=== PATIENT | male | born 1945 | race Caucasian/White ===

== ENCOUNTER 2018-07-16 14:23 | Outpatient (CLI) | payer MEDICARE, OTHER ==
[2018-07-16] MEDS ORDERED: Gadobenate Dimeglumine 529 MG/1 ML (20ML VIAL) ONE (16:35)
--- NOTE | 2018-07-16 19:32 | MRI ---
MRI LUMBAR SPINE WITH AND WITHOUT IV CONTRAST: 07/16/18 HISTORY: Lumbar radiculopathy. Patient with history of prior surgery one year ago. Patient now having bilatera l leg pain and weakness. Abnormal gait. COMPARISON: 02/23/16. There has been interval enlargement of exophytic cystic lesion at the inferior pole right kidney mayra uring 2.6 cm and previously measured 1.8 cm. This demonstrates characteristics most compatible with a cyst. Retroperitoneal structures otherwise have a normal MRI appearance. The conus medullaris is normal in appearance and terminates at the level of the L1 vertebral body. Again noted is slight retrolisthesis of L3 on L4 and slight grade I anterolisthesis of L4 on L5. Post surgical changes are again seen involving the lumbar spine with laminectomy defects at the L4 and L5. 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 Scatte red degenerative changes seen in the lumbar spine, overall similar to prior exam. There is narrowing of the intervertebral disc spaces at all levels. T12-L1 level: There is a mild broad based disc osteophyte complex. There is mild effacement of the ve ntral subarachnoid space. Neural foramina are patent. L1-2 level: There are end plate degenerative changes present at this level. There is a broad based di sc osteophyte complex centrally greater on the right resulting in mild right sided neural foraminal n arrowing. There is only minimal encroachment on the left neural foramen. There is generalized narrowi ng of the central spinal canal. L2-3 level: There is broad based osteophyte complex and facet hypertrophic changes. Moderate narrowin g of the central spinal canal. There is mild to moderate bilateral neural foraminal narrowing. The di sc bulge laterally on the right does encroach on the exited right L2 nerve root. L3-4 level: There is a broad based disc osteophyte complex and facet degenerative changes. The findin gs result in moderate narrowing of the central spinal canal. There is moderate to severe bilateral ne ural foraminal narrowing, greater on the left with disc bulge laterally encroaching on the exited fortino ateral L3 nerve roots. L4-5 level: Laminectomy changes are present. There is a broad based disc osteophyte complex with face t hypertrophic changes. There is moderate narrowing of the central spinal canal with severe left side d neural foraminal narrowing and mild right sided neural foraminal narrowing. There is also narrowing of the subarticular zones bilaterally due to the broad based disc osteophyte complex as well. L5-S1 level: There is a mild disc osteophyte complex and facet hypertrophic changes. There is no sign ificant narrowing of the central spinal canal. Right neural foramen is patent, but there is mild to m oderate left sided neural foraminal narrowing similar to the prior exam. There is mild enhancement posterior to the thecal sac at the L4-5 level likely related to scar tissue . No other areas of abnormal enhancement are present. IMPRESSION: 1. Multilevel degenerative changes in the lumbar spine with postoperative changes in the lower l umbar spine. Degree of degenerative changes are overall stable compared to prior exam. POS: MIAH
== END 2018-07-16 14:24 | disposition home or self-care (01) ==
LOC: TBSIIMAG 14:23
PROVIDERS: ATTEND Neurological Surgery
DX: M47.26 Other spondylosis with radiculopathy, lumbar region (principal); Z98.890 Other specified postprocedural states
CPT/HCPCS: 72158; 82565

== ENCOUNTER 2019-10-14 08:51 | Outpatient (CLI) | payer MEDICARE, OTHER ==
--- NOTE | 2019-10-14 11:10 | MRI ---
MRI lumbar spine noncontrast: HISTORY: Spinal stenosis, lumbar. Low back pain. Pain radiates down both lower extremities to both knees. COMPARISON: 06/23/2013, 07/16/2018 FINDINGS: Heterogeneity involving the inferior endplate and superior endplate at L1-L2 and L2-L3. Type I and ty pe II Modic changes are suspected. Lumbar spine vertebral body height is maintained. There is no fracture. No significant STIR hyperintensity to suggest edema from fracture or ligamentous injury. Th ere is edema associated with the type I Modic change at L2-3. Appropriate signal intensity of the visualized paraspinal muscles and solid organs. There is an exoph ytic cyst emanating from the right renal cortex measuring 2.6 cm. Conus medullaris terminates at the mid L1 level. T12-L1:Desiccation with moderate loss of disc space height. Left and right paracentral disc bulges, l igamentum flavum thickening and facet hypertrophy result in mild central canal stenosis. Mild bilateral foraminal narrowing due to disc material. L1-L2:Desiccation with moderate loss of disc space height. Broad-based disc bulge with a right subart icular component. Disc material abuts but does not obscure the traversing right L2 nerve root. No significant stenosis of the thecal sac. Moderate right neural foraminal narrowing due to disc materia l. Left neural foramen is patent L2-L3:Disc desiccation with moderate loss of disc space height. Broad-based disc bulge, ligamentum fl avum thickening and facet hypertrophy noted. There is a small left subarticular disc herniation. Moderate central canal stenosis. Moderate to severe right neural foraminal narrowing. Moderate left f oraminal narrowing. Foraminal narrowing predominantly due to disc material. L3-L4:Disc desiccation without significant loss of disc space height. Broad-based disc bulge with a c entral disc herniation. There is a small focus of disc material in the bilateral subarticular zones. Disc material does contact but does not obscure either traversing L4 nerve root. Moderate cent ral canal stenosis due to disc material and posterior element hypertrophy. Moderate to severe bilateral neural foraminal narrowing. L4-L5:Disc desiccation with mild loss of disc space height. Posterior laminectomy defect. Broad-based disc bulge, ligamentum flavum thickening and facet hypertrophy result in mild to moderate central canal stenosis. Moderate right and moderate to severe left foraminal narrowing. The degree of foramin al stenosis has progressed since the previous examination. L5-S1:Desiccation with mild loss of disc space height. Broad-based disc bulge with a left subarticula r component. There is contact upon the traversing left S1 nerve root without significant mass effect or obscuration. Right subareolar zone is unremarkable. Thecal sac is patent. Mild bilateral ne ural foraminal narrowing. Spondylolisthesis: 4.8 mm of retrolisthesis of L3 upon L4. 5.3 mm anterolisthesis of L4 upon L5. IMPRESSION: 1. Multilevel degenerative changes of the lumbar spine as described above. 2. Type I and type II Modic changes at L1-L2 and L2-L3. 3. Spondylolisthesis as above. Transcribed Date/Time: 10/14/2019 12:25 PM
== END 2019-10-14 08:52 | disposition home or self-care (01) ==
LOC: BICMRI 08:51
PROVIDERS: ATTEND Anesthesiology Pain Medicine
DX: M48.062 Spinal stenosis, lumbar region with neurogenic claudication (principal); M43.16 Spondylolisthesis, lumbar region; M47.816 Spondylosis without myelopathy or radiculopathy, lumbar region
CPT/HCPCS: 72148

== ENCOUNTER 2020-07-21 06:24 | Outpatient (CLI) | payer MEDICARE, OTHER ==
[2020-07-22 20:28] LABS: SARS-CoV-2 MS2 Positive; SARS-CoV-2 N Gene Negative; SARS-CoV-2 S Gene Negative; SARS-CoV-2 by NAA Not Detected (NotDetected); SARS-CoV-2 orf1ab Negative
--- NOTE | 2020-07-25 06:57 | EKG ---
Test Reason : Blood Pressure : / mmHG Vent. Rate : 072 BPM Atrial Rate : 072 BPM P-R Int : 168 ms QRS Dur : 084 ms QT Int : 366 ms P-R-T Axes : 063 042 118 degrees QTc Int : 400 ms Normal sinus rhythm with sinus arrhythmia T wave abnormality, consider lateral ischemia Abnormal ECG No previous ECGs available Confirmed by ARTHUR REYES MD ([id number]) on 07/25/2020 6:57:20 AM Referred By: KASEY Confirmed By:ARTHUR REYES MD
== END 2020-07-21 06:25 | disposition home or self-care (01) ==
LOC: LABBT 06:24
PROVIDERS: ATTEND Neurological Surgery
DX: Z01.818 Encounter for other preprocedural examination (principal); Z01.812 Encounter for preprocedural laboratory examination; Z20.828 Contact with and (suspected) exposure to other viral communicable diseases; M48.061 Spinal stenosis, lumbar region without neurogenic claudication
CPT/HCPCS: 93005; U0003; 87635; 93010

== ENCOUNTER 2020-07-26 07:58 | Day surgery (SDC) | payer MEDICARE, OTHER ==
[2020-07-25 14:22] VITALS: BMI 40.8
--- NOTE | 2020-07-25 22:38 | HP ---
HISTORY OF PRESENT ILLNESS: Mr. Machuca is known to us for prior lumbar decompression, returns now with recurrent symptoms of neurogenic claudication. He has been receiving epidural steroid injections by Dr. Porter, which resulted in some support of 7 days of at least is having a significant deal of trouble when walking as result of his symptoms. New MRI from [facility] reveals severe central canal stenosis at L2-3, which would certainly correspond well to this pain. PAST MEDICAL HISTORY: Significant for osteoarthritis and seasonal allergies. PAST SURGICAL HISTORY: Internal fixation of the lower extremity fracture and lumbar laminectomy. CURRENT MEDICATIONS: 1. Brovana. 2. Sertraline. 3. Lisinopril. 4. Hydrochlorothiazide. ALLERGIES: NO KNOWN DRUG ALLERGIES. PHYSICAL EXAMINATION: Exam is deferred for telehealth visit. ASSESSMENT: Lumbar spinal stenosis with neurogenic claudication. PLAN: Dr. Moses met with the patient, reviewed imaging, and advocated for an L2-3 decompression. He explained to the patient the risks, benefits, and alternatives to the procedure. The patient expressed understanding and elected to move forward with surgery as discussed. I do believe the patient is mentally competent and capable of making medical decisions for himself. We will move forward with surgery as planned. Job ID: [id number]
[2020-07-26] MEDS ORDERED: Bupivacaine PF 0.5% 30 ML VIAL ONE (08:03)
[2020-07-26] MEDS ORDERED: EPINEPHrine 1 MG/ML AMP ONE (08:03)
[2020-07-26] MEDS ORDERED: Albuterol Sulfate 2.5 mg/3 ml Neb ONE (08:13)
[2020-07-26] MEDS ORDERED: Fentanyl 100 MCG/2 ML VIAL ONE ×2 (08:52→12:19)
[2020-07-26] MEDS ORDERED: Thrombin 5000 UNITS/5 ML VIAL ONE (10:22)
[2020-07-26] MEDS ORDERED: SUGAMMADEX SODIUM 200 MG/2 ML VIAL ONE ×2 (10:23→10:49)
--- NOTE | 2020-07-26 10:38 | OP ---
DATE OF PROCEDURE: 07/26/2020 SMELTER CHARGER: Kirk Coreas PA-C INDICATION: Pain. DIAGNOSIS: Lumbar stenosis. PROCEDURES PERFORMED: L2-L3 lumbar decompression. ANESTHESIA: General. DESCRIPTION OF PROCEDURE: The patient was brought into the operating room and placed under general anesthesia. He was flipped from the supine to prone position on the operating room table. A linear incision was planned spanning L2 to L3. After prepping and draping and after an appropriate preoperative pause, the incision was created. The soft tissues were swept away from midline. A self-retaining retractor was placed in the wound for optimal exposure. An Adson rongeur was used to remove the spinous process along the inferior aspect of L2 and the superior aspect of L3. High-speed cutting drill bit as well as 2, 3, and 4 mm Kerrisons were used to complete the laminectomy. The laminectomy was extended laterally to encompass the medial aspect of the facet joints. After completing the decompression, the wound was irrigated. Hemostasis was maintained throughout. The wound was then closed in anatomic layers, and a pressure dressing was applied. There were no known procedural complications. Job ID: [id number]
[2020-07-26] MEDS ORDERED: Tamsulosin HCl 0.4 MG CAP ONE (11:16)
[2020-07-26] MEDS ORDERED: PHENYLEPHRINE-NS 100 MCG/ML 10 ML SYRINGE ONE (11:22)
[2020-07-26] MEDS ORDERED: Lidocaine 1% PF 5 ML VIAL ONE (11:22)
[2020-07-26] MEDS ORDERED: ePHEDrine 50 MG/ML VIAL ONE (11:22)
[2020-07-26] MEDS ORDERED: Albuterol Sulfate HFA (OR ONLY) ONE (11:22)
[2020-07-26] MEDS ORDERED: PROPOFOL 200 MG/20 ML VIAL ONE (11:22)
[2020-07-26] MEDS ORDERED: Rocuronium Bromide 10 MG/ML (10ML VIAL) ONE (11:22)
[2020-07-26] MEDS ORDERED: Ondansetron PF 4 MG/2 ML Vial ONE (11:22)
[2020-07-26] MEDS ORDERED: Ketorolac Tromethamine 30 MG/ML VIAL ONE (11:22)
[2020-07-26] MEDS ORDERED: Acetaminophen/Codeine 30-300mg Tablet ONE (13:43)
== END 2020-07-26 15:50 | disposition home or self-care (01) ==
LOC: SDC 07:58
PROVIDERS: ATTEND Neurological Surgery
PROC: 01NB0ZZ Release Lumbar Nerve, Open Approach (ICD-10-PCS; principal; 2020-07-26)
DX: M48.062 Spinal stenosis, lumbar region with neurogenic claudication (principal); M19.90 Unspecified osteoarthritis, unspecified site; J30.2 Other seasonal allergic rhinitis; Z79.899 Other long term (current) drug therapy
CPT/HCPCS: 76000; J0171; J0690; J1885; J2405; J2704; J3010; J3490; J7611; J7620; S0020

== ENCOUNTER 2020-10-17 08:02 | Outpatient (CLI) | payer MEDICARE, OTHER ==
--- NOTE | 2020-10-17 08:18 | RAD ---
RADIOGRAPH CHEST 2 VIEWS: DATE: 10/17/2020 HISTORY: 74-year-old male with dyspnea FINDINGS: There is no airspace density, pulmonary edema, pleural effusion, pneumothorax, or cardiomegaly. IMPRESSION: No acute cardiopulmonary findings.
== END 2020-10-17 08:03 | disposition home or self-care (01) ==
LOC: BICRAD 08:02
PROVIDERS: ATTEND Internal Medicine Critical Care Medicine
DX: R06.00 Dyspnea, unspecified (principal)
CPT/HCPCS: 71046

== ENCOUNTER 2021-05-29 12:02 | Outpatient (CLI) | payer MEDICARE, OTHER | END 2021-05-29 12:03 | disposition home or self-care (01) | LOC: RAD 12:02 | PROVIDERS: ATTEND Specialist | DX: M96.1 Postlaminectomy syndrome, not elsewhere classified (principal); M47.26 Other spondylosis with radiculopathy, lumbar region | CPT/HCPCS: 72120 ==

== ENCOUNTER 2022-01-30 13:26 | Outpatient (CLI) | payer MEDICARE | END 2022-01-30 13:27 | disposition home or self-care (01) | LOC: TBSIIMAG 13:26 | PROVIDERS: ATTEND Specialist | DX: M96.1 Postlaminectomy syndrome, not elsewhere classified (principal); M47.26 Other spondylosis with radiculopathy, lumbar region; M51.16 Intervertebral disc disorders with radiculopathy, lumbar region; M43.16 Spondylolisthesis, lumbar region; M48.061 Spinal stenosis, lumbar region without neurogenic claudication; M48.07 Spinal stenosis, lumbosacral region; Z98.890 Other specified postprocedural states | CPT/HCPCS: 72100; 72158 ==

== ENCOUNTER 2022-05-21 13:25 | Outpatient (CLI) | payer MEDICARE ==
[2022-05-21 15:11] LABS: Hemoglobin 12.5 g/dL (13.5-17.5); Mean Corpuscular HGB CONC 32.1 g/dL (32.0-36.0); Mean Corpuscular Hemoglobin 28.3 pg (27.0-33.0); Mean Corpuscular Volume 88.2 fl (81.2-95.1); Mean Platelet Volume 11.7 fl (7.4-10.4); Platelet Count 302 10x3/uL (150-450); RBC Distribution Width 14.3 % (11.5-14.5); Red Blood Cell (RBC) Count 4.42 10x6/uL (4.32-5.72)
[2022-05-21 15:25] LABS: Anion Gap 15 mmol/L (10-20); BUN (Urea Nitrogen) 16 mg/dL (8.4-25.7); Calc. Creatinine Clearance 0 mL/min (70-130); Carbon Dioxide 24 mmol/L (23-31); Chloride 105 mmol/L (98-107); Estimated GFR 57; Glucose 111 mg/dL (83-110); Potassium 4.1 mmol/L (3.5-5.1); Sodium 140 mmol/L (136-145)
== END 2022-05-21 13:26 | disposition home or self-care (01) ==
LOC: LABBT 13:25
PROVIDERS: ATTEND Neurological Surgery
DX: U07.1 COVID-19 (principal); Z01.818 Encounter for other preprocedural examination; M54.16 Radiculopathy, lumbar region
CPT/HCPCS: 80048; 85027; 87811; 93005; 93010

== ENCOUNTER 2022-05-22 14:00 | Outpatient (CLI) | payer MEDICARE | END 2022-05-22 14:01 | disposition home or self-care (01) | LOC: LABBT 14:00 | PROVIDERS: ATTEND Nurse Practitioner Family | DX: Z20.822 Contact with and (suspected) exposure to COVID-19 (principal) | CPT/HCPCS: U0003; U0005 ==

== ENCOUNTER 2022-05-24 05:40 | Day surgery (SDC) | payer MEDICARE ==
[2022-05-23 09:23] VITALS: BMI 40.8
[2022-05-24] MEDS ORDERED: Thrombin 5000 UNITS/5 ML VIAL ONE (06:19)
[2022-05-24] MEDS ORDERED: Bupivacaine HCl 0.5%/Epinephrine 1:200,000/PF 30 ml Vial ONE (06:19)
[2022-05-24] MEDS ORDERED: fentaNYL Citrate/PF 100 MCG/2 ML SYRINGE ONE (06:21)
[2022-05-24] MEDS ORDERED: Sodium Chloride 0.9% 100 ML ONE ×2 (06:57→11:21)
[2022-05-24] MEDS ORDERED: CEFAZOLIN 2 GM VIAL ONE ×2 (06:57→11:21)
[2022-05-24] MEDS ORDERED: Rocuronium Bromide 10 MG/ML (10ML VIAL) ONE (07:11)
[2022-05-24] MEDS ORDERED: ePHEDrine 50 MG/ML VIAL ONE (07:11)
[2022-05-24] MEDS ORDERED: Lidocaine 1% MPF 2 ML VIAL ONE (07:11)
[2022-05-24] MEDS ORDERED: Ondansetron PF 4 MG/2 ML Vial ONE (07:11)
[2022-05-24] MEDS ORDERED: Dexamethasone 20 MG/5 ML VIAL ONE (07:11)
[2022-05-24] MEDS ORDERED: PROPOFOL 200 MG/20 ML VIAL ONE (07:11)
[2022-05-24] MEDS ORDERED: Phenylephrine 10 MG/ML VIAL ONE (07:11)
[2022-05-24] MEDS ORDERED: SUGAMMADEX SODIUM 200 MG/2 ML VIAL ONE (08:24)
[2022-05-24] MEDS ORDERED: Fentanyl 100 MCG/2 ML VIAL ONE (08:55)
[2022-05-24] MEDS ORDERED: Tamsulosin HCl 0.4 MG CAP ONE (09:29)
== END 2022-05-24 11:57 | disposition home or self-care (01) ==
LOC: SDC 05:40
PROVIDERS: ATTEND Neurological Surgery
PROC: 01NB0ZZ Release Lumbar Nerve, Open Approach (ICD-10-PCS; principal; 2022-05-24)
DX: M48.062 Spinal stenosis, lumbar region with neurogenic claudication (principal); M54.16 Radiculopathy, lumbar region; J45.909 Unspecified asthma, uncomplicated; Z79.899 Other long term (current) drug therapy
CPT/HCPCS: 76000; J0690; J3010; J3490; J7620

== ENCOUNTER 2022-10-01 08:37 | Inpatient (IN) | payer MEDICARE ==
[2022-10-01] MEDS ORDERED: Meclizine HCl 25 MG TAB ONE (09:13)
[2022-10-01 09:45] LABS: #Basophils 0.1 thou/uL (0.0-0.2); #Eosinphils 0.1 thou/uL (0.0-0.7); #Lymphocytes 3.3 thou/uL (1.20-3.40); #Monocytes 0.9 thou/uL (0.11-0.59); #Neutrophils 8.2 thou/uL (1.40-6.50); %Basophils 0.7 % (0.0-1.0); %Eosinophils 0.7 % (0.0-10.0); %Lymphocytes 26.5 % (21.0-51.0); %Monocytes 7.1 % (0.0-10.0); %Neutrophils 65.1 % (42.0-75.0); Hemoglobin 12.7 g/dL (14.0-18.0); Mean Corpuscular HGB CONC 32.4 g/dL (32.0-36.0); Mean Corpuscular Hemoglobin 28.4 pg (27.0-31.0); Mean Corpuscular Volume 87.5 fl (78.0-98.0); Mean Platelet Volume 9.3 fL (7.4-10.4); Platelet Count 309 10x3/uL (130-400); RBC Distribution Width 15.5 % (11.5-14.5); Red Blood Cell (RBC) Count 4.49 mill/uL (4.70-6.10); White Blood Cell (WBC) Count 12.6 10x3/uL (4.8-10.8)
[2022-10-01 10:07] LABS: ALT (SGPT) 16 U/L (8-55); AST (SGOT) 11 U/L (5-34); Albumin 3.7 g/dL (3.4-4.8); Alkaline Phosphatase 69 U/L (40-110); Anion Gap 12 mmol/L (10-20); BUN (Urea Nitrogen) 21 mg/dL (8.4-25.7); Bilirubin, Total 0.2 mg/dL (0.2-1.2); CK (CPK) 57 U/L (30-200); Calc. Creatinine Clearance 0 mL/min (70-130); Calcium 8.9 mg/dL (7.8-10.44); Carbon Dioxide 26 mmol/L (23-31); Chloride 103 mmol/L (98-107); Estimated GFR 66; Globulin 3.4 g/dL (2.4-3.5); Glucose 99 mg/dL (83-110); Lipase 40 U/L (8-78); Potassium 3.8 mmol/L (3.5-5.1); Protein, Total 7.1 g/dL (5.8-8.1); Sodium 137 mmol/L (136-145)
[2022-10-01] MEDS ORDERED: Aspirin Chewable 81 MG TAB ONE (10:09)
[2022-10-01 10:25] LABS: Bilirubin Negative (Negative); Blood, Urine Negative (Negative); Clarity Clear (Clear); Glucose, Urine (Dipstick) Normal (Negative); Ketone, Urine Negative (Negative); Leukocyte Negative Leu/uL (Negative); Nitrite Negative (Negative); Protein, Urine (Dipstick) Negative (Neg-Trace); Specific Gravity, Urine 1.019 (1.002-1.036); Urobilinogen Normal mg/dL (Less than 2)
[2022-10-01 10:26] LABS: CKMB 1.2 ng/mL (0-6.6)
[2022-10-01] MEDS ORDERED: Acetaminophen 325 MG TAB PO PRN (11:51)
[2022-10-01] MEDS ORDERED: Ondansetron ODT 4 MG TAB PO PRN (11:51)
[2022-10-01] MEDS ORDERED: Ondansetron PF 4 MG/2 ML Vial IVP PRN (11:51)
[2022-10-01] MEDS ORDERED: Senokot S 8.6-50 MG TAB PO PRN (11:51)
[2022-10-01 13:13] LABS: Troponin I 0.107 ng/mL (< 0.028)
[2022-10-01] MEDS ORDERED: Benzonatate 100 MG CAP PO PRN (13:47)
[2022-10-01] MEDS ORDERED: Ipratropium/Albuterol 3 ML NEB NEB PRN (13:47)
[2022-10-01 16:22] LABS: Troponin I 0.084 ng/mL (< 0.028)
[2022-10-01 18:11] LABS: SARS-CoV-2 NAA Rapid Test Not Detected (NotDetected)
[2022-10-01] MEDS: Atorvastatin Calcium 40 MG TAB PO SCH (22:56)
[2022-10-02 01:47] LABS: #Basophils 0.1 thou/uL (0.0-0.2); #Eosinphils 0.2 thou/uL (0.0-0.7); #Lymphocytes 3.6 thou/uL (1.20-3.40); #Monocytes 0.9 thou/uL (0.11-0.59); #Neutrophils 6.8 thou/uL (1.40-6.50); %Basophils 0.7 % (0.0-1.0); %Eosinophils 1.9 % (0.0-10.0); %Lymphocytes 30.7 % (21.0-51.0); %Monocytes 8.1 % (0.0-10.0); %Neutrophils 58.6 % (42.0-75.0); Hemoglobin 12.5 g/dL (14.0-18.0); Mean Corpuscular HGB CONC 31.9 g/dL (32.0-36.0); Mean Corpuscular Hemoglobin 27.7 pg (27.0-31.0); Mean Corpuscular Volume 87.1 fl (78.0-98.0); Mean Platelet Volume 9.6 fL (7.4-10.4); Platelet Count 280 10x3/uL (130-400); RBC Distribution Width 15.6 % (11.5-14.5); Red Blood Cell (RBC) Count 4.51 mill/uL (4.70-6.10); White Blood Cell (WBC) Count 11.6 10x3/uL (4.8-10.8)
[2022-10-02 02:23] LABS: Hemoglobin A1c 6.4 % (4.0-6.0)
[2022-10-02 02:25] LABS: Anion Gap 13 mmol/L (10-20); BUN (Urea Nitrogen) 24 mg/dL (8.4-25.7); Calc. Creatinine Clearance 98 mL/min (70-130); Calcium 9.1 mg/dL (7.8-10.44); Carbon Dioxide 25 mmol/L (23-31); Cardiac Risk 3.2 (Less than 4.5); Chloride 103 mmol/L (98-107); Cholesterol 175 mg/dl (< 200 Desired); Estimated GFR 62; Glucose 89 mg/dL (83-110); HDL Cholesterol 54 mg/dL (>60 Neg Risk); LDL Cholesterol, Calculated 99 mg/dL; Potassium 4.6 mmol/L (3.5-5.1); Sodium 136 mmol/L (136-145); Triglycerides 110 mg/dL (Less than 150)
[2022-10-02] MEDS ORDERED: Non-Formulary Item 1 EACH (Sertraline Hcl [Zoloft] 50 MG Tablet) PO SCH (09:00)
[2022-10-02] MEDS ORDERED: Aspirin Chewable 81 MG TAB ONE (09:08)
[2022-10-02] MEDS: Lisinopril/Hydrochlorothiazide 20 mg/12.5 mg Tablet PO SCH (09:59)
[2022-10-02] MEDS: Aspirin 81 mg Enteric Coated Tablet PO SCH (09:59)
[2022-10-02] MEDS: Sertraline 25 MG TAB PO SCH (10:00)
[2022-10-02 16:34] VITALS: BMI 38.1
[2022-10-02] MEDS: Atorvastatin Calcium 40 MG TAB PO SCH (22:02)
[2022-10-03 06:16] LABS: #Basophils 0.1 thou/uL (0.0-0.2); #Eosinphils 0.3 thou/uL (0.0-0.7); #Lymphocytes 2.2 thou/uL (1.20-3.40); #Monocytes 0.7 thou/uL (0.11-0.59); %Basophils 0.6 % (0.0-1.0); %Eosinophils 3.1 % (0.0-10.0); %Lymphocytes 23.7 % (21.0-51.0); %Monocytes 7.2 % (0.0-10.0); %Neutrophils 65.4 % (42.0-75.0); Hemoglobin 12.6 g/dL (14.0-18.0); Mean Corpuscular HGB CONC 31.8 g/dL (32.0-36.0); Mean Corpuscular Hemoglobin 27.6 pg (27.0-31.0); Mean Corpuscular Volume 86.6 fl (78.0-98.0); Mean Platelet Volume 10.2 fL (7.4-10.4); Platelet Count 286 10x3/uL (130-400); Red Blood Cell (RBC) Count 4.59 mill/uL (4.70-6.10); White Blood Cell (WBC) Count 9.2 10x3/uL (4.8-10.8)
[2022-10-03 06:35] LABS: Anion Gap 12 mmol/L (10-20); BUN (Urea Nitrogen) 25 mg/dL (8.4-25.7); Calc. Creatinine Clearance 103 mL/min (70-130); Carbon Dioxide 27 mmol/L (23-31); Chloride 101 mmol/L (98-107); Estimated GFR 71; Glucose 92 mg/dL (83-110); Potassium 3.9 mmol/L (3.5-5.1); Sodium 136 mmol/L (136-145)
[2022-10-03] MEDS ORDERED: Regadenoson 0.4 MG/5 ML SYRINGE ONE (08:42)
[2022-10-03 12:33] VITALS: TEMP 97.4
[2022-10-03] MEDS: Lisinopril/Hydrochlorothiazide 20 mg/12.5 mg Tablet PO SCH (12:38)
[2022-10-03] MEDS: Aspirin 81 mg Enteric Coated Tablet PO SCH (12:39)
[2022-10-03] MEDS: Sertraline 25 MG TAB PO SCH (12:41)
[2022-10-03 14:23] VITALS: BP 121/53
== END 2022-10-03 16:30 | disposition home or self-care (01) | DRG 69 ==
LOC: ERS 08:37 → ERHOLD 11:04 → NEURO 10-02 16:02 → OBSVTOIN 10-02 17:04
PROVIDERS: ADMIT Internal Medicine; ATTEND Internal Medicine
DX: G45.9 Transient cerebral ischemic attack, unspecified (principal); I10 Essential (primary) hypertension; F32.A Depression, unspecified; D64.9 Anemia, unspecified; E78.5 Hyperlipidemia, unspecified; Z86.73 Personal history of transient ischemic attack (TIA), and cerebral infarction without residual deficits; Z20.822 Contact with and (suspected) exposure to COVID-19; Z79.899 Other long term (current) drug therapy; Z79.51 Long term (current) use of inhaled steroids; Z98.890 Other specified postprocedural states; Z82.49 Family history of ischemic heart disease and other diseases of the circulatory system; Z82.3 Family history of stroke; R79.89 Other specified abnormal findings of blood chemistry
CPT/HCPCS: 36415; 70450; 70551; 71045; 78452; 80048; 80053; 80061; 81003; 82550; 82553; 83036; 83690; 84484; 85025; 93005; 93017; 93880; 94640; A9500; G0378; J2785; J7620

== ENCOUNTER 2022-11-18 15:22 | Inpatient (IN) | payer MEDICARE ==
[2022-11-18] MEDS ORDERED: Senokot S 8.6-50 MG TAB PO PRN (18:58)
[2022-11-18] MEDS ORDERED: Ondansetron PF 4 MG/2 ML Vial IVP PRN (18:58)
[2022-11-18] MEDS ORDERED: Guaifenesin DM 100-10/5 ML UDCUP PO PRN (18:58)
[2022-11-18] MEDS ORDERED: Acetaminophen 325 MG TAB PO PRN (18:58)
[2022-11-18] MEDS ORDERED: Ipratropium/Albuterol 3 ML NEB NEB PRN (20:42)
[2022-11-18] MEDS ORDERED: Sodium Chloride 0.9% 1,000 ML IV SCH (20:45)
[2022-11-18] MEDS ORDERED: Potassium Chloride 20 MEQ TAB PO SCH (21:30)
[2022-11-18] MEDS: Atorvastatin Calcium 40 MG TAB PO SCH (22:10)
[2022-11-18 23:57] LABS: Bacteria/HPF None Seen HPF (None Seen); Bilirubin Negative (Negative); Blood, Urine Negative (Negative); Clarity Clear (Clear); Glucose, Urine (Dipstick) Normal (Negative); Ketone, Urine Negative (Negative); Leukocyte Negative Leu/uL (Negative); Nitrite Negative (Negative); Protein, Urine (Dipstick) Negative (Neg-Trace); RBC/HPF 0-3 HPF (0-3); Squamous Epithelial None Seen HPF (0-3); Urobilinogen Normal mg/dL (Less than 2); WBC/HPF 0-3 HPF (0-3)
[2022-11-19 00:05] VITALS: BMI 38.4
[2022-11-19 06:21] LABS: #Eosinphils 0.4 thou/uL (0.0-0.7); #Monocytes 0.6 thou/uL (0.11-0.59); #Neutrophils 7.2 thou/uL (1.40-6.50); %Basophils 0.5 % (0.0-1.0); %Eosinophils 4.1 % (0.0-10.0); %Lymphocytes 19.6 % (21.0-51.0); %Neutrophils 69.9 % (42.0-75.0); Hemoglobin 8.3 g/dL (14.0-18.0); Mean Corpuscular HGB CONC 31.4 g/dL (32.0-36.0); Mean Corpuscular Hemoglobin 27.4 pg (27.0-31.0); Mean Corpuscular Volume 87.4 fl (78.0-98.0); Mean Platelet Volume 8.2 fL (7.4-10.4); Platelet Count 373 10x3/uL (130-400); RBC Distribution Width 14.9 % (11.5-14.5); Red Blood Cell (RBC) Count 3.04 mill/uL (4.70-6.10); White Blood Cell (WBC) Count 10.3 10x3/uL (4.8-10.8)
[2022-11-19 06:42] LABS: Anion Gap 12 mmol/L (10-20); BUN (Urea Nitrogen) 47 mg/dL (8.4-25.7); Calc. Creatinine Clearance 55 mL/min (70-130); Calcium 8.5 mg/dL (7.8-10.44); Carbon Dioxide 25 mmol/L (23-31); Chloride 104 mmol/L (98-107); Estimated GFR 35; Glucose 96 mg/dL (83-110); Magnesium 2.2 mg/dL (1.6-2.6); Potassium 4.8 mmol/L (3.5-5.1); Sodium 136 mmol/L (136-145)
[2022-11-19] MEDS ORDERED: Potassium Chloride 20 MEQ TAB PO SCH (08:00)
[2022-11-19] MEDS: Aspirin 81 mg Enteric Coated Tablet PO SCH (08:25)
[2022-11-19] MEDS: Sodium Chloride 0.9% 1,000 ML IV SCH (16:31)
[2022-11-19] MEDS ORDERED: Iron Sucrose Complex 200 MG in Sodium Chloride 0.9% 100 ML IVPB SCH (16:45)
[2022-11-19] MEDS ORDERED: Iron, Sodium Ferric Gluconate 250 MG in Sodium Chloride 0.9% 250 ML 250 ML IVPB SCH (16:45)
[2022-11-19] MEDS ORDERED: Ipratropium/Albuterol 3 ML NEB NEB PRN (19:50)
[2022-11-19] MEDS: Multivit, Therapeutic 1 TAB PO SCH (20:36)
[2022-11-19] MEDS: Atorvastatin Calcium 40 MG TAB PO SCH (20:36)
[2022-11-19] MEDS: Cyanocobalamin (Vitamin B-12) 1,000 MCG TAB PO SCH (20:36)
[2022-11-19] MEDS: Folic Acid 1 MG TAB PO SCH (20:36)
[2022-11-20] MEDS ORDERED: Ipratropium/Albuterol 3 ML NEB NEB SCH (01:00)
[2022-11-20] MEDS: Sodium Chloride 0.9% 1,000 ML IV SCH ×2 (03:46→11:10)
[2022-11-20 06:23] LABS: #Basophils 0.1 thou/uL (0.0-0.2); #Eosinphils 0.5 thou/uL (0.0-0.7); #Lymphocytes 1.8 thou/uL (1.20-3.40); #Monocytes 0.7 thou/uL (0.11-0.59); %Eosinophils 4.7 % (0.0-10.0); %Lymphocytes 16.6 % (21.0-51.0); %Monocytes 6.4 % (0.0-10.0); %Neutrophils 71.4 % (42.0-75.0); Hemoglobin 8.8 g/dL (14.0-18.0); Mean Corpuscular HGB CONC 31.9 g/dL (32.0-36.0); Mean Corpuscular Hemoglobin 27.9 pg (27.0-31.0); Mean Corpuscular Volume 87.6 fl (78.0-98.0); Mean Platelet Volume 8.5 fL (7.4-10.4); Platelet Count 339 10x3/uL (130-400); Red Blood Cell (RBC) Count 3.15 mill/uL (4.70-6.10); White Blood Cell (WBC) Count 11.1 10x3/uL (4.8-10.8)
[2022-11-20 06:24] LABS: Reticulocyte Count 2.5 % (0.5-1.5)
[2022-11-20 06:45] LABS: Anion Gap 11 mmol/L (10-20); BUN (Urea Nitrogen) 31 mg/dL (8.4-25.7); Calc. Creatinine Clearance 87 mL/min (70-130); Calcium 8.3 mg/dL (7.8-10.44); Carbon Dioxide 21 mmol/L (23-31); Chloride 107 mmol/L (98-107); Estimated GFR 62; Glucose 97 mg/dL (83-110); Magnesium 2.1 mg/dL (1.6-2.6); Potassium 4.4 mmol/L (3.5-5.1); Sodium 135 mmol/L (136-145)
[2022-11-20] MEDS ORDERED: Sodium Chloride 0.9% 1,000 ML IV SCH (08:03)
[2022-11-20] MEDS: Aspirin 81 mg Enteric Coated Tablet PO SCH (10:03)
[2022-11-20] MEDS: Sertraline 100 MG TAB PO SCH (10:05)
[2022-11-20] MEDS ORDERED: GoLYTELY 4,000 ml Bottle PO SCH (17:00)
[2022-11-20] MEDS ORDERED: Iron, Sodium Ferric Gluconate 250 MG in Sodium Chloride 0.9% 250 ML 250 ML IVPB SCH (17:00)
[2022-11-20] MEDS: Cholecalciferol 1,000 UNITS (25 MCG) TAB PO SCH (22:05)
[2022-11-20] MEDS: Multivit, Therapeutic 1 TAB PO SCH (22:05)
[2022-11-20] MEDS: Atorvastatin Calcium 40 MG TAB PO SCH (22:05)
[2022-11-20] MEDS: Folic Acid 1 MG TAB PO SCH (22:05)
[2022-11-20] MEDS: Cyanocobalamin (Vitamin B-12) 1,000 MCG TAB PO SCH (22:05)
[2022-11-21 06:35] LABS: #Eosinphils 0.2 thou/uL (0.0-0.7); #Lymphocytes 1.6 thou/uL (1.20-3.40); #Monocytes 0.7 thou/uL (0.11-0.59); %Basophils 0.5 % (0.0-1.0); %Eosinophils 1.7 % (0.0-10.0); %Monocytes 6.6 % (0.0-10.0); %Neutrophils 76.2 % (42.0-75.0); Hemoglobin 7.7 g/dL (14.0-18.0); Mean Corpuscular Hemoglobin 27.7 pg (27.0-31.0); Mean Corpuscular Volume 86.6 fl (78.0-98.0); Mean Platelet Volume 8.2 fL (7.4-10.4); Platelet Count 274 10x3/uL (130-400); RBC Distribution Width 14.8 % (11.5-14.5); Red Blood Cell (RBC) Count 2.77 mill/uL (4.70-6.10); White Blood Cell (WBC) Count 10.6 10x3/uL (4.8-10.8)
[2022-11-21 06:54] LABS: Anion Gap 12 mmol/L (10-20); BUN (Urea Nitrogen) 20 mg/dL (8.4-25.7); Calc. Creatinine Clearance 99 mL/min (70-130); Calcium 8.7 mg/dL (7.8-10.44); Carbon Dioxide 22 mmol/L (23-31); Chloride 105 mmol/L (98-107); Estimated GFR 72; Glucose 106 mg/dL (83-110); Potassium 4.3 mmol/L (3.5-5.1); Sodium 135 mmol/L (136-145)
[2022-11-21] MEDS ORDERED: Lidocaine 1% PF 5 ML VIAL ONE (10:00)
[2022-11-21] MEDS ORDERED: PROPOFOL 200 MG/20 ML VIAL ONE (10:00)
[2022-11-21] MEDS ORDERED: Glycopyrrolate 0.2 MG/ML 5 ML SYRINGE ONE (10:00)
[2022-11-21] MEDS ORDERED: Morphine Sulfate 2 MG/ML SYRINGE SLOW IVP PRN (10:53)
[2022-11-21] MEDS ORDERED: Promethazine HCl 25 MG/ML VIAL IM PRN (10:53)
[2022-11-21] MEDS ORDERED: Ondansetron HCl/PF 4 MG/2 ML Vial IVP PRN (10:53)
[2022-11-21] MEDS: Sertraline 100 MG TAB PO SCH (11:46)
[2022-11-21] MEDS: Aspirin 81 mg Enteric Coated Tablet PO SCH (11:46)
[2022-11-21] MEDS ORDERED: Furosemide 20 MG/2 ML VIAL SLOW IVP SCH (18:45)
[2022-11-21] MEDS ORDERED: Iron Sucrose Complex 200 MG in Sodium Chloride 0.9% 100 ML IVPB SCH (18:45)
[2022-11-21] MEDS ORDERED: Furosemide 40 MG TAB PO SCH (18:45)
[2022-11-21] MEDS: Atorvastatin Calcium 40 MG TAB PO SCH (20:33)
[2022-11-21] MEDS: Cyanocobalamin (Vitamin B-12) 1,000 MCG TAB PO SCH (20:33)
[2022-11-21] MEDS: Folic Acid 1 MG TAB PO SCH ×2 (20:33→20:41)
[2022-11-21] MEDS: Cholecalciferol 1,000 UNITS (25 MCG) TAB PO SCH (20:33)
[2022-11-21] MEDS: Multivit, Therapeutic 1 TAB PO SCH (20:33)
[2022-11-22 05:46] LABS: Hemoglobin 7.5 g/dL (14.0-18.0)
[2022-11-22 06:12] LABS: Anion Gap 11 mmol/L (10-20); BUN (Urea Nitrogen) 17 mg/dL (8.4-25.7); Calc. Creatinine Clearance 90 mL/min (70-130); Calcium 8.8 mg/dL (7.8-10.44); Carbon Dioxide 26 mmol/L (23-31); Chloride 105 mmol/L (98-107); Estimated GFR 64; Glucose 118 mg/dL (83-110); Potassium 3.9 mmol/L (3.5-5.1); Sodium 138 mmol/L (136-145)
[2022-11-22] MEDS ORDERED: Iron Polysaccharides Complex 150 MG CAP PO SCH (08:00)
[2022-11-22] MEDS ORDERED: Potassium Chloride 20 MEQ TAB PO SCH (08:15)
[2022-11-22] MEDS ORDERED: Furosemide 40 MG TAB PO SCH ×2 (08:15→14:00)
[2022-11-22] MEDS: Aspirin 81 mg Enteric Coated Tablet PO SCH (09:51)
[2022-11-22] MEDS: Sertraline 100 MG TAB PO SCH (09:58)
[2022-11-22 15:29] VITALS: BP 116/70; TEMP 97.5
== END 2022-11-22 16:45 | disposition home or self-care (01) | DRG 812 ==
LOC: NEURO 18:55 → OBSVTOIN 11-20 10:43
PROVIDERS: ADMIT Hospitalist; ATTEND Internal Medicine
PROC: 0DBK8ZZ Excision of Ascending Colon, Via Natural or Artificial Opening Endoscopic (ICD-10-PCS; principal; 2022-11-21)
PROC: 0DBB8ZX Excision of Ileum, Via Natural or Artificial Opening Endoscopic, Diagnostic (ICD-10-PCS; 2022-11-21)
DX: D50.9 Iron deficiency anemia, unspecified (principal); N17.9 Acute kidney failure, unspecified; E87.1 Hypo-osmolality and hyponatremia; Z20.822 Contact with and (suspected) exposure to COVID-19; E87.6 Hypokalemia; E78.5 Hyperlipidemia, unspecified; J45.909 Unspecified asthma, uncomplicated; I95.1 Orthostatic hypotension; E66.9 Obesity, unspecified; I12.9 Hypertensive chronic kidney disease with stage 1 through stage 4 chronic kidney disease, or unspecified chronic kidney disease; N18.30 Chronic kidney disease, stage 3 unspecified; F41.9 Anxiety disorder, unspecified; D75.839 Thrombocytosis, unspecified; R00.1 Bradycardia, unspecified; E86.0 Dehydration; Z79.899 Other long term (current) drug therapy; Z79.82 Long term (current) use of aspirin; Z86.73 Personal history of transient ischemic attack (TIA), and cerebral infarction without residual deficits; Z68.38 Body mass index [BMI] 38.0-38.9, adult
CPT/HCPCS: 36415; 70551; 71045; 76770; 80048; 81001; 83735; 83880; 85014; 85018; 85025; 85046; 88305; 93306; 94640; 95712; 95819; 95957; 96372; G0378; J1650; J2704; J2916; J7050; J7620; U0003; U0005

== ENCOUNTER 2022-12-20 14:10 | Inpatient (IN) | payer MEDICARE ==
[~2022-12-20 14:10] MED LIST: Iopamidol-370 76% 500 ML MDV (1 ML CHARGE) ONE
[2022-12-20] MEDS ORDERED: methylPREDNISolone Sod Succ/PF 125 MG/2 ML VIAL ONE (15:45)
[2022-12-20 15:46] LABS: #Basophils 0.1 thou/uL (0.0-0.2); #Eosinphils 0.5 thou/uL (0.0-0.7); #Lymphocytes 1.2 thou/uL (1.20-3.40); #Monocytes 0.9 thou/uL (0.11-0.59); #Neutrophils 9.3 thou/uL (1.40-6.50); %Basophils 0.5 % (0.0-1.0); %Eosinophils 3.8 % (0.0-10.0); %Lymphocytes 10.3 % (21.0-51.0); %Monocytes 7.6 % (0.0-10.0); %Neutrophils 77.8 % (42.0-75.0); Hemoglobin 12.2 g/dL (14.0-18.0); Mean Corpuscular HGB CONC 31.9 g/dL (32.0-36.0); Mean Corpuscular Hemoglobin 30.4 pg (27.0-31.0); Mean Platelet Volume 9.1 fL (7.4-10.4); Platelet Count 288 10x3/uL (130-400); RBC Distribution Width 17.6 % (11.5-14.5); Red Blood Cell (RBC) Count 4.02 mill/uL (4.70-6.10)
[2022-12-20] MEDS ORDERED: Ipratropium Bromide 2.5 ml Neb ONE (15:51)
[2022-12-20 16:13] LABS: ALT (SGPT) 34 U/L (8-55); AST (SGOT) 24 U/L (5-34); Albumin 4.2 g/dL (3.4-4.8); Alkaline Phosphatase 75 U/L (40-110); Anion Gap 16 mmol/L (10-20); BUN (Urea Nitrogen) 16 mg/dL (8.4-25.7); Bilirubin, Total 0.4 mg/dL (0.2-1.2); Calc. Creatinine Clearance 0 mL/min (70-130); Calcium 9.5 mg/dL (7.8-10.44); Carbon Dioxide 26 mmol/L (23-31); Chloride 100 mmol/L (98-107); Estimated GFR 67; Globulin 3.8 g/dL (2.4-3.5); Glucose 97 mg/dL (83-110); Potassium 3.5 mmol/L (3.5-5.1); Sodium 138 mmol/L (136-145)
[2022-12-20] MEDS ORDERED: Aspirin Chewable 81 MG TAB ONE (17:02)
[2022-12-20] MEDS ORDERED: Nitroglycerin 0.4 MG TAB (25 Tab Bottle) SL PRN (17:46)
[2022-12-20] MEDS ORDERED: Acetaminophen 325 MG TAB PO PRN (17:46)
[2022-12-20] MEDS ORDERED: Ondansetron PF 4 MG/2 ML Vial IVP PRN (17:46)
[2022-12-20] MEDS ORDERED: NS 0.9% w/ 20 MEQ KCL 1,000 ML/1,000 ML BAG IV SCH (18:00)
[2022-12-20 19:25] LABS: Troponin I 0.111 ng/mL (< 0.028)
[2022-12-20] MEDS: Atorvastatin Calcium 40 MG TAB PO SCH (21:27)
[2022-12-21] MEDS: Arformoterol 15 MCG/2 ML NEB NEB SCH ×3 (01:32→18:58)
[2022-12-21] MEDS: Budesonide 0.5 MG/2 ML NEB NEB SCH ×3 (01:33→17:12)
[2022-12-21 05:46] LABS: #Lymphocytes 0.6 thou/uL (1.20-3.40); #Monocytes 0.2 thou/uL (0.11-0.59); #Neutrophils 5.5 thou/uL (1.40-6.50); %Eosinophils 0.2 % (0.0-10.0); %Lymphocytes 8.8 % (21.0-51.0); %Monocytes 2.7 % (0.0-10.0); %Neutrophils 88.3 % (42.0-75.0); Hemoglobin 11.4 g/dL (14.0-18.0); Mean Corpuscular HGB CONC 32.6 g/dL (32.0-36.0); Mean Corpuscular Hemoglobin 30.9 pg (27.0-31.0); Mean Corpuscular Volume 94.6 fl (78.0-98.0); Mean Platelet Volume 9.3 fL (7.4-10.4); Platelet Count 231 10x3/uL (130-400); RBC Distribution Width 17.2 % (11.5-14.5); White Blood Cell (WBC) Count 6.2 10x3/uL (4.8-10.8)
[2022-12-21 06:06] LABS: Anion Gap 15 mmol/L (10-20); BUN (Urea Nitrogen) 20 mg/dL (8.4-25.7); Calc. Creatinine Clearance 102 mL/min (70-130); Calcium 9.2 mg/dL (7.8-10.44); Carbon Dioxide 22 mmol/L (23-31); Chloride 105 mmol/L (98-107); Estimated GFR 74; Glucose 138 mg/dL (83-110); Sodium 138 mmol/L (136-145)
[2022-12-21] MEDS: Sertraline 100 MG TAB PO SCH (08:25)
[2022-12-21] MEDS: Aspirin Chewable 81 MG TAB PO SCH (08:25)
[2022-12-21] MEDS ORDERED: Lisinopril/Hydrochlorothiazide 20 mg/12.5 mg Tablet PO SCH (12:30)
[2022-12-21] MEDS ORDERED: Furosemide 40 MG TAB PO SCH (12:30)
[2022-12-21] MEDS: Albuterol 200 PUFF (6.7GM INHALER) INH PRN (18:29)
[2022-12-21] MEDS: Atorvastatin Calcium 40 MG TAB PO SCH (20:30)
[2022-12-22] MEDS: Arformoterol 15 MCG/2 ML NEB NEB SCH ×2 (07:38→19:08)
[2022-12-22] MEDS: Budesonide 0.5 MG/2 ML NEB NEB SCH ×2 (07:40→19:07)
[2022-12-22] MEDS ORDERED: Communication Order-Pharmacy FS SCH (07:45)
[2022-12-22] MEDS: Aspirin Chewable 81 MG TAB PO SCH (08:20)
[2022-12-22] MEDS: Lisinopril/Hydrochlorothiazide 20 mg/12.5 mg Tablet PO SCH (08:20)
[2022-12-22] MEDS: Iron Polysaccharides Complex 150 MG CAP PO SCH (08:21)
[2022-12-22] MEDS: Furosemide 40 MG TAB PO SCH (08:21)
[2022-12-22] MEDS: Sertraline 100 MG TAB PO SCH (08:21)
[2022-12-22] MEDS: Sodium Chloride 0.9% 1,000 ML IV SCH ×2 (08:52→18:15)
[2022-12-22] MEDS ORDERED: predniSONE 20 MG TAB PO SCH (14:15)
[2022-12-22] MEDS: Atorvastatin Calcium 40 MG TAB PO SCH (20:47)
[2022-12-22] MEDS: Albuterol 200 PUFF (6.7GM INHALER) INH PRN (22:21)
[2022-12-23 05:09] LABS: #Lymphocytes 1.2 thou/uL (1.20-3.40); #Monocytes 0.6 thou/uL (0.11-0.59); #Neutrophils 9.1 thou/uL (1.40-6.50); %Basophils 0.2 % (0.0-1.0); %Eosinophils 0.1 % (0.0-10.0); %Lymphocytes 10.9 % (21.0-51.0); %Monocytes 5.3 % (0.0-10.0); %Neutrophils 83.6 % (42.0-75.0); Hemoglobin 11.6 g/dL (14.0-18.0); Mean Corpuscular HGB CONC 31.8 g/dL (32.0-36.0); Mean Corpuscular Hemoglobin 29.9 pg (27.0-31.0); Mean Corpuscular Volume 94.2 fl (78.0-98.0); Mean Platelet Volume 9.2 fL (7.4-10.4); Platelet Count 302 10x3/uL (130-400); RBC Distribution Width 17.1 % (11.5-14.5); Red Blood Cell (RBC) Count 3.87 mill/uL (4.70-6.10); White Blood Cell (WBC) Count 10.9 10x3/uL (4.8-10.8)
[2022-12-23 05:27] LABS: Anion Gap 12 mmol/L (10-20); BUN (Urea Nitrogen) 35 mg/dL (8.4-25.7); Calc. Creatinine Clearance 93 mL/min (70-130); Calcium 9.6 mg/dL (7.8-10.44); Carbon Dioxide 25 mmol/L (23-31); Chloride 103 mmol/L (98-107); Estimated GFR 67; Glucose 113 mg/dL (83-110); Potassium 4.1 mmol/L (3.5-5.1); Sodium 136 mmol/L (136-145)
[2022-12-23] MEDS: Sodium Chloride 0.9% 1,000 ML IV SCH ×2 (06:26→17:27)
[2022-12-23] MEDS: Sertraline 100 MG TAB PO SCH (06:26)
[2022-12-23] MEDS: Aspirin Chewable 81 MG TAB PO SCH (06:26)
[2022-12-23] MEDS ORDERED: Lidocaine 1% (PF) 30 ML VIAL ONE (06:26)
[2022-12-23] MEDS ORDERED: Midazolam HCl 2 mg/2 ml Vial ONE (07:12)
[2022-12-23] MEDS ORDERED: fentaNYL 50 mcg/mL 1 mL Vial ONE (07:12)
[2022-12-23] MEDS: Arformoterol 15 MCG/2 ML NEB NEB SCH ×2 (07:28→18:14)
[2022-12-23] MEDS: Budesonide 0.5 MG/2 ML NEB NEB SCH ×2 (07:28→18:15)
[2022-12-23] MEDS ORDERED: Nitroglycerin 0.4 MG TAB (25 Tab Bottle) SL PRN (08:39)
[2022-12-23] MEDS ORDERED: Acetaminophen/Codeine 30-300mg Tablet PO PRN ×2 (08:39)
[2022-12-23] MEDS ORDERED: Sodium Chloride 0.9% 200 ML IV PRN (08:39)
[2022-12-23] MEDS: Iron Polysaccharides Complex 150 MG CAP PO SCH (08:54)
[2022-12-23] MEDS: predniSONE 20 MG TAB PO SCH (10:12)
[2022-12-23] MEDS: Lisinopril/Hydrochlorothiazide 20 mg/12.5 mg Tablet PO SCH (10:51)
[2022-12-23] MEDS: Furosemide 40 MG TAB PO SCH (10:51)
[2022-12-23] MEDS ORDERED: Iopamidol 370 76% 100 ML VIAL ONE (14:39)
[2022-12-23] MEDS: Atorvastatin Calcium 40 MG TAB PO SCH (20:38)
[2022-12-23] MEDS: Albuterol 200 PUFF (6.7GM INHALER) INH PRN (20:47)
[2022-12-24 03:51] LABS: #Lymphocytes 2.8 thou/uL (1.20-3.40); #Neutrophils 7.8 thou/uL (1.40-6.50); %Basophils 0.4 % (0.0-1.0); %Eosinophils 0.4 % (0.0-10.0); %Lymphocytes 24.2 % (21.0-51.0); %Monocytes 8.2 % (0.0-10.0); %Neutrophils 66.8 % (42.0-75.0); Hemoglobin 11.5 g/dL (14.0-18.0); Mean Corpuscular HGB CONC 32.7 g/dL (32.0-36.0); Mean Corpuscular Hemoglobin 30.7 pg (27.0-31.0); Mean Corpuscular Volume 93.7 fl (78.0-98.0); Mean Platelet Volume 8.8 fL (7.4-10.4); Platelet Count 291 10x3/uL (130-400); RBC Distribution Width 17.1 % (11.5-14.5); Red Blood Cell (RBC) Count 3.74 mill/uL (4.70-6.10); White Blood Cell (WBC) Count 11.6 10x3/uL (4.8-10.8)
[2022-12-24 04:15] LABS: Anion Gap 14 mmol/L (10-20); BUN (Urea Nitrogen) 36 mg/dL (8.4-25.7); Calc. Creatinine Clearance 86 mL/min (70-130); Calcium 9.3 mg/dL (7.8-10.44); Carbon Dioxide 25 mmol/L (23-31); Chloride 103 mmol/L (98-107); Estimated GFR 61; Glucose 110 mg/dL (83-110); Potassium 3.6 mmol/L (3.5-5.1); Sodium 138 mmol/L (136-145)
[2022-12-24] MEDS: Lisinopril/Hydrochlorothiazide 20 mg/12.5 mg Tablet PO SCH (05:38)
[2022-12-24] MEDS ORDERED: Dexamethasone 4 mg/ml Vial ONE (06:19)
[2022-12-24] MEDS ORDERED: Bupivacaine HCl 0.5%/Epinephrine 1:200,000/PF 30 ml Vial ONE (06:20)
[2022-12-24] MEDS ORDERED: Albumin 5% 500 ML ONE (06:20)
[2022-12-24] MEDS ORDERED: Fentanyl 250 MCG/5 ML VIAL ONE (07:01)
[2022-12-24] MEDS ORDERED: Midazolam HCl 2 mg/2 ml Vial ONE (07:01)
[2022-12-24] MEDS ORDERED: Dexmedetomidine 200 MCG/2 ML VIAL ONE (07:02)
[2022-12-24] MEDS ORDERED: Heparin 10,000 UNITS/1 ML VIAL 30,000 UNITS in Sodium Chloride 0.9% 1,000 ML FS SCH (07:45)
[2022-12-24] MEDS ORDERED: Ondansetron ODT 4 MG TAB ONE (07:57)
[2022-12-24] MEDS ORDERED: Ipratropium/Albuterol 3 ML NEB ONE (07:57)
[2022-12-24] MEDS ORDERED: CEFAZOLIN 2 GM VIAL ONE (08:37)
[2022-12-24] MEDS ORDERED: Sodium Chloride 0.9% 100 ML ONE (08:37)
[2022-12-24] MEDS ORDERED: PROPOFOL 200 MG/20 ML VIAL ONE (09:15)
[2022-12-24 10:09] LABS: Actual Bicarbonate (HCO3a) 25.5 mEq/L (22-28); Base Excess (BEa) 1.2 mEq/L (-2.0 to +3.0); CO2 Tension 39.2 mmHg (35.0-45.0); Calcium, Ionized (arterial) 1.13 mmol/L (1.12-1.30); Carboxyhemoglobin (COHb) 0.6 gm% (0.0-3.0); Hemoglobin (Hb) 11.7 g/dL (14.0-18.0); Potassium - ABG Lab 3.27 mmol/L (3.70-5.30); pH, Arterial 7.43 (7.35-7.45)
[2022-12-24] MEDS ORDERED: Aminocaproic Acid 5 GM/20 ML VIAL ONE (10:09)
[2022-12-24] MEDS ORDERED: Calcium Chloride 1 GM/10 ML Abboject SYRINGE ONE (10:09)
[2022-12-24] MEDS ORDERED: Heparin 5,000 UNITS/ML VIAL ONE (10:09)
[2022-12-24] MEDS ORDERED: Papaverine 60 MG/2 ML VIAL ONE (10:09)
[2022-12-24] MEDS ORDERED: Heparin 30,000 units/30 ml VIAL ONE (10:09)
[2022-12-24] MEDS ORDERED: Vancomycin 1 GM VIAL ONE (10:09)
[2022-12-24] MEDS ORDERED: Magnesium 5 GM/10 ML VIAL ONE (10:09)
[2022-12-24] MEDS ORDERED: Nitroglycerin 50 MG/250 ML BOT ONE (10:09)
[2022-12-24] MEDS ORDERED: Lidocaine 2% PF 100 mg/5 ml Syringe ONE (10:09)
[2022-12-24] MEDS ORDERED: Protamine Sulfate 250 MG/25 ML VIAL ONE (10:09)
[2022-12-24] MEDS ORDERED: Mannitol 12.5 GM/50 ML ONE (10:09)
[2022-12-24] MEDS ORDERED: Potassium Chloride 60 MEQ/30 ML VIAL ONE (10:09)
[2022-12-24] MEDS ORDERED: Sodium Bicarb 50 MEQ/50 ML VIAL ONE (10:09)
[2022-12-24] MEDS ORDERED: Cardioplegic Soln 1,000 ML BAG ONE (10:09)
[2022-12-24] MEDS ORDERED: Thrombin 5000 UNITS/5 ML VIAL ONE (10:09)
[2022-12-24 11:56] LABS: Actual Bicarbonate (HCO3v) 25 mEq/L (22-28); Base Excess -0.1 mEq/L (-2.0 to +3.0); Calcium, Ionized (venous) 1.08 mmol/L (1.16-1.32); Chloride (VBG) 102 mmol/L (98-106); Potassium (VBG) 4.09 mmol/L (3.70-5.30); Sodium 135.5 mmol/L (133-146); pH (venous) 7.41 (7.32-7.43)
[2022-12-24 11:57] LABS: Actual Bicarbonate (HCO3a) 24.1 mEq/L (22-28); Base Excess (BEa) -0.1 mEq/L (-2.0 to +3.0); CO2 Tension 37.5 mmHg (35.0-45.0); Calcium, Ionized (arterial) 1.08 mmol/L (1.12-1.30); Carboxyhemoglobin (COHb) 0.5 gm% (0.0-3.0); Hemoglobin (Hb) 9.1 g/dL (14.0-18.0); O2 Tension (PaO2), arterial 283.1 mmHg (> 70.0); Potassium - ABG Lab 4.02 mmol/L (3.70-5.30); pH, Arterial 7.43 (7.35-7.45)
[2022-12-24 11:58] LABS: Actual Bicarbonate (HCO3a) 24.7 mEq/L (22-28); CO2 Tension 35.7 mmHg (35.0-45.0); Calcium, Ionized (arterial) 1.05 mmol/L (1.12-1.30); Carboxyhemoglobin (COHb) 0.4 gm% (0.0-3.0); Hemoglobin (Hb) 8.9 g/dL (14.0-18.0); O2 Tension (PaO2), arterial 399.5 mmHg (> 70.0); pH, Arterial 7.46 (7.35-7.45)
[2022-12-24 11:59] LABS: Actual Bicarbonate (HCO3a) 26.1 mEq/L (22-28); Base Excess (BEa) 0.3 mEq/L (-2.0 to +3.0); Calcium, Ionized (arterial) 1.11 mmol/L (1.12-1.30); Carboxyhemoglobin (COHb) 0.8 gm% (0.0-3.0); Hemoglobin (Hb) 12.1 g/dL (14.0-18.0); O2 Tension (PaO2), arterial 285.8 mmHg (> 70.0); Potassium - ABG Lab 3.49 mmol/L (3.70-5.30); Puncture Site A; pH, Arterial 7.36 (7.35-7.45)
[2022-12-24 12:41] LABS: Actual Bicarbonate (HCO3a) 24.2 mEq/L (22-28); Base Excess (BEa) -2.1 mEq/L (-2.0 to +3.0); CO2 Tension 48.7 mmHg (35.0-45.0); Calcium, Ionized (arterial) 1.12 mmol/L (1.12-1.30); Carboxyhemoglobin (COHb) 0.4 gm% (0.0-3.0); Hemoglobin (Hb) 10.6 g/dL (14.0-18.0); O2 Tension (PaO2), arterial 126.5 mmHg (> 70.0); Potassium - ABG Lab 4.01 mmol/L (3.70-5.30); pH, Arterial 7.32 (7.35-7.45)
[2022-12-24] MEDS: Arformoterol 15 MCG/2 ML NEB NEB SCH (13:13)
[2022-12-24] MEDS: Budesonide 0.5 MG/2 ML NEB NEB SCH ×2 (13:13→18:43)
[2022-12-24 13:15] LABS: Actual Bicarbonate (HCO3a) 23.3 mEq/L (22-28); Base Excess (BEa) -4.5 mEq/L (-2.0 to +3.0); CO2 Tension 55.6 mmHg (35.0-45.0); Calcium, Ionized (arterial) 1.14 mmol/L (1.12-1.30); Carboxyhemoglobin (COHb) 0.6 gm% (0.0-3.0); Hemoglobin (Hb) 11.3 g/dL (14.0-18.0); O2 Tension (PaO2), arterial 111.6 mmHg (> 70.0); Potassium - ABG Lab 4.08 mmol/L (3.70-5.30); Puncture Site Arterial Line; pH, Arterial 7.24 (7.35-7.45)
[2022-12-24] MEDS ORDERED: Morphine 4 MG/ML VIAL ONE (13:15)
[2022-12-24] MEDS ORDERED: NOREPINEPHRINE 8 MG/250 ML-D5W 250 ML IVPB PRN (13:19)
[2022-12-24] MEDS ORDERED: Post-Op Insulin Drip Protocol IVPB ONE (13:19)
[2022-12-24] MEDS ORDERED: Acetaminophen 325 MG TAB PO PRN (13:19)
[2022-12-24] MEDS ORDERED: Guaifenesin DM 100-10/5 ML UDCUP PO PRN (13:19)
[2022-12-24] MEDS ORDERED: Nitroglycerin 50 MG/250 ML BOT 250 ML IVPB PRN (13:19)
[2022-12-24] MEDS ORDERED: Magnesium 2 GM/50 ML(in water) 2 GM in Premix Bag 1 BAG IVPB SCH (13:19)
[2022-12-24] MEDS ORDERED: Ondansetron PF 4 MG/2 ML Vial IVP PRN (13:19)
[2022-12-24] MEDS ORDERED: D5 1/2 NS w/20 mEq KCL 1,000 ML IV SCH (13:19)
[2022-12-24] MEDS ORDERED: hydrALAZINE 20 MG/ML VIAL SLOW IVP PRN (13:19)
[2022-12-24] MEDS ORDERED: Hetastarch 6% 500 ML 500 ML IVPB PRN (13:19)
[2022-12-24] MEDS ORDERED: Mag-Al 1200 mg/1200 mg/30 ML UDCUP PO PRN (13:19)
[2022-12-24] MEDS ORDERED: Ipratropium/Albuterol 3 ML NEB NEB PRN (13:19)
[2022-12-24] MEDS ORDERED: Potassium Chloride 20 MEQ/100 ML PREMIX BAG IVPB PRN (13:19)
[2022-12-24] MEDS ORDERED: Bisacodyl 5 MG TAB PO PRN (13:19)
[2022-12-24] MEDS ORDERED: Bisacodyl 10 MG SUPP PR PRN (13:19)
[2022-12-24] MEDS ORDERED: Morphine 2 MG/ML VIAL SLOW IVP PRN (13:19)
[2022-12-24] MEDS ORDERED: traMADol HCl 50 MG TAB PO PRN ×2 (13:19)
[2022-12-24] MEDS ORDERED: DOPamine 400 MG/D5W 250 ML 250 ML ONE (13:23)
[2022-12-24 13:40] LABS: Hemoglobin 10.6 g/dL (14.0-18.0); Mean Corpuscular HGB CONC 31.9 g/dL (32.0-36.0); Mean Corpuscular Hemoglobin 30.6 pg (27.0-31.0); Mean Corpuscular Volume 96.2 fl (78.0-98.0); Mean Platelet Volume 9.1 fL (7.4-10.4); Platelet Count 296 10x3/uL (130-400); Red Blood Cell (RBC) Count 3.47 mill/uL (4.70-6.10); White Blood Cell (WBC) Count 32.1 10x3/uL (4.8-10.8)
[2022-12-24] MEDS ORDERED: fentaNYL 50 mcg/mL 1 mL Vial SLOW IVP PRN ×2 (13:41→13:42)
[2022-12-24 13:46] LABS: Anion Gap 16 mmol/L (10-20); BUN (Urea Nitrogen) 30 mg/dL (8.4-25.7); Calc. Creatinine Clearance 89 mL/min (70-130); Calcium 8.1 mg/dL (7.8-10.44); Carbon Dioxide 19 mmol/L (23-31); Chloride 108 mmol/L (98-107); Estimated GFR 63; Glucose 185 mg/dL (83-110); Sodium 139 mmol/L (136-145)
[2022-12-24 13:50] LABS: INR-International Normal Ratio 1.3; Prothrombin Time 16.7 sec (12.0-14.7)
[2022-12-24] MEDS: predniSONE 20 MG TAB PO SCH (13:50)
[2022-12-24 13:57] LABS: Anisocytosis SLIGHT = 6-15 cells (100X) (0-5/hpf); Band 9 % (5-11); Lymphocytes 12 % (21-51); MDiff Complete? YES; Monocytes 5 % (0-10); Neutrophil 74 % (42-75); Ovalocytes SLIGHT = 2-5 cells (100X) (0-1/hpf); Platelet Morphology Comment Appears Adequate; Polychromasia SLIGHT = 2-3 cells (100X) (0-2/hpf)
[2022-12-24] MEDS ORDERED: Dextrose 50% Abboject 50 ML SYRINGE SLOW IVP PRN (14:00)
[2022-12-24] MEDS ORDERED: Insulin Regular 300 UNITS/3 ML VIAL SC PRN (14:00)
[2022-12-24] MEDS ORDERED: HUMULIN R 100 UNITS in Sodium Chloride 0.9% 100 ML IVPB SCH (14:00)
[2022-12-24] MEDS ORDERED: Dextrose 5% in Water 1,000 ML IV PRN (14:00)
[2022-12-24] MEDS ORDERED: Ipratropium/Albuterol 3 ML NEB NEB SCH (14:00)
[2022-12-24] MEDS: Iron Polysaccharides Complex 150 MG CAP PO SCH (14:24)
[2022-12-24] MEDS: Aspirin Chewable 81 MG TAB PO SCH (14:24)
[2022-12-24] MEDS: Sertraline 100 MG TAB PO SCH (14:25)
[2022-12-24] MEDS: Furosemide 40 MG TAB PO SCH (14:25)
[2022-12-24] MEDS ORDERED: DOPamine 400 MG/D5W 250 ML 250 ML IVPB SCH (16:30)
[2022-12-24] MEDS: Ketorolac Tromethamine 30 MG/ML VIAL IVP SCH ×2 (18:15→23:30)
[2022-12-24] MEDS: CEFAZOLIN 2 GM in Sodium Chloride 0.9% 100 ML IVPB SCH (18:16)
[2022-12-24] MEDS: Oxybutynin 5 MG TAB PO PRN (18:39)
[2022-12-24] MEDS: Ipratropium/Albuterol 3 ML NEB NEB SCH (18:42)
[2022-12-24] MEDS: Atorvastatin Calcium 40 MG TAB PO SCH (20:46)
[2022-12-24] MEDS ORDERED: Famotidine/PF 20 mg/2ml Vial SLOW IVP SCH (21:00)
[2022-12-24 21:41] LABS: Hemoglobin 10.6 g/dL (14.0-18.0)
[2022-12-24 21:55] LABS: Potassium 4.6 mmol/L (3.5-5.1)
[2022-12-25] MEDS: Ipratropium/Albuterol 3 ML NEB NEB SCH ×4 (00:20→18:58)
[2022-12-25] MEDS: CEFAZOLIN 2 GM in Sodium Chloride 0.9% 100 ML IVPB SCH ×2 (00:24→08:25)
[2022-12-25 02:23] LABS: #Lymphocytes 0.9 thou/uL (1.20-3.40); #Monocytes 1.1 thou/uL (0.11-0.59); #Neutrophils 10.3 thou/uL (1.40-6.50); %Basophils 0.1 % (0.0-1.0); %Eosinophils 0.1 % (0.0-10.0); %Lymphocytes 7.5 % (21.0-51.0); %Monocytes 8.7 % (0.0-10.0); %Neutrophils 83.6 % (42.0-75.0); Hemoglobin 9.2 g/dL (14.0-18.0); Mean Corpuscular HGB CONC 31.8 g/dL (32.0-36.0); Mean Corpuscular Hemoglobin 30.1 pg (27.0-31.0); Mean Corpuscular Volume 94.7 fl (78.0-98.0); Platelet Count 213 10x3/uL (130-400); RBC Distribution Width 16.7 % (11.5-14.5); Red Blood Cell (RBC) Count 3.06 mill/uL (4.70-6.10); White Blood Cell (WBC) Count 12.3 10x3/uL (4.8-10.8)
[2022-12-25 02:31] LABS: Anion Gap 12 mmol/L (10-20); BUN (Urea Nitrogen) 31 mg/dL (8.4-25.7); Calc. Creatinine Clearance 95 mL/min (70-130); Carbon Dioxide 23 mmol/L (23-31); Chloride 109 mmol/L (98-107); Estimated GFR 69; Glucose 122 mg/dL (83-110); Potassium 4.6 mmol/L (3.5-5.1); Sodium 139 mmol/L (136-145)
[2022-12-25] MEDS: Ketorolac Tromethamine 30 MG/ML VIAL IVP SCH ×3 (05:48→18:19)
[2022-12-25] MEDS ORDERED: Dextrose 50% Abboject 50 ML SYRINGE SLOW IVP PRN (06:37)
[2022-12-25] MEDS ORDERED: HumaLOG 300 UNITS/3 ML VIAL SC PRN (06:37)
[2022-12-25] MEDS ORDERED: Dextrose 5% in Water 1,000 ML IV PRN (06:37)
[2022-12-25] MEDS: Budesonide 0.5 MG/2 ML NEB NEB SCH ×2 (07:54→18:59)
[2022-12-25] MEDS: predniSONE 20 MG TAB PO SCH (08:25)
[2022-12-25] MEDS: Aspirin 325 MG TAB PO SCH (08:25)
[2022-12-25] MEDS: Magnesium 2 GM/50 ML(in water) 2 GM in Premix Bag 1 BAG IVPB SCH (08:26)
[2022-12-25] MEDS: Sertraline 25 MG TAB PO SCH (08:27)
[2022-12-25 15:05] VITALS: BMI 37.6
[2022-12-25] MEDS: Oxybutynin 5 MG TAB PO PRN (18:25)
[2022-12-25] MEDS: Arformoterol 15 MCG/2 ML NEB NEB SCH (18:58)
[2022-12-25] MEDS: Atorvastatin Calcium 40 MG TAB PO SCH (21:07)
[2022-12-26] MEDS: Ketorolac Tromethamine 30 MG/ML VIAL IVP SCH ×5 (00:45→23:04)
[2022-12-26] MEDS: Ipratropium/Albuterol 3 ML NEB NEB SCH ×4 (01:47→18:46)
[2022-12-26] MEDS: Arformoterol 15 MCG/2 ML NEB NEB SCH ×2 (06:45→18:48)
[2022-12-26] MEDS: Budesonide 0.5 MG/2 ML NEB NEB SCH ×2 (06:46→18:48)
[2022-12-26] MEDS: predniSONE 20 MG TAB PO SCH (08:27)
[2022-12-26] MEDS: Sertraline 25 MG TAB PO SCH (08:27)
[2022-12-26] MEDS: Aspirin 325 MG TAB PO SCH (08:27)
[2022-12-26] MEDS: Magnesium 2 GM/50 ML(in water) 2 GM in Premix Bag 1 BAG IVPB SCH (08:28)
[2022-12-26] MEDS: Lisinopril/Hydrochlorothiazide 10 mg/12.5 mg Tablet PO SCH (08:28)
[2022-12-26] MEDS: Atorvastatin Calcium 40 MG TAB PO SCH (21:03)
[2022-12-27] MEDS: Ipratropium/Albuterol 3 ML NEB NEB SCH ×3 (00:10→12:43)
[2022-12-27] MEDS: Ketorolac Tromethamine 30 MG/ML VIAL IVP SCH ×2 (05:27→12:05)
[2022-12-27] MEDS: Arformoterol 15 MCG/2 ML NEB NEB SCH (07:09)
[2022-12-27] MEDS: Budesonide 0.5 MG/2 ML NEB NEB SCH (07:10)
[2022-12-27] MEDS: Sertraline 25 MG TAB PO SCH (08:16)
[2022-12-27] MEDS: predniSONE 20 MG TAB PO SCH (08:16)
[2022-12-27] MEDS: Aspirin 325 MG TAB PO SCH (08:16)
[2022-12-27] MEDS: Lisinopril/Hydrochlorothiazide 10 mg/12.5 mg Tablet PO SCH (09:15)
[2022-12-27 12:35] VITALS: BP 129/65; TEMP 98.2
== END 2022-12-27 12:00 | disposition home or self-care (01) | DRG 233 ==
LOC: ERS 14:10 → 2SW 18:36 → OBSVTOIN 12-23 10:48 → CCU 12-24 07:30 → 2SW 12-26 00:16
PROVIDERS: ADMIT Thoracic Surgery (Cardiothoracic Vascular Surgery); ATTEND Internal Medicine
PROC: 4A023N7 Measurement of Cardiac Sampling and Pressure, Left Heart, Percutaneous Approach (ICD-10-PCS; 2022-12-23)
PROC: B2151ZZ Fluoroscopy of Left Heart using Low Osmolar Contrast (ICD-10-PCS; 2022-12-23)
PROC: B2111ZZ Fluoroscopy of Multiple Coronary Arteries using Low Osmolar Contrast (ICD-10-PCS; 2022-12-23)
PROC: 02100Z9 Bypass Coronary Artery, One Artery from Left Internal Mammary, Open Approach (ICD-10-PCS; principal; 2022-12-24)
PROC: 021109W Bypass Coronary Artery, Two Arteries from Aorta with Autologous Venous Tissue, Open Approach (ICD-10-PCS; 2022-12-24)
PROC: 06BQ4ZZ Excision of Left Saphenous Vein, Percutaneous Endoscopic Approach (ICD-10-PCS; 2022-12-24)
PROC: 5A1221Z Performance of Cardiac Output, Continuous (ICD-10-PCS; 2022-12-24)
DX: I25.10 Atherosclerotic heart disease of native coronary artery without angina pectoris (principal); I50.33 Acute on chronic diastolic (congestive) heart failure; I13.0 Hypertensive heart and chronic kidney disease with heart failure and stage 1 through stage 4 chronic kidney disease, or unspecified chronic kidney disease; C34.02 Malignant neoplasm of left main bronchus; E66.9 Obesity, unspecified; E78.5 Hyperlipidemia, unspecified; J45.909 Unspecified asthma, uncomplicated; D63.1 Anemia in chronic kidney disease; F39 Unspecified mood [affective] disorder; N18.2 Chronic kidney disease, stage 2 (mild); R59.0 Localized enlarged lymph nodes; Z78.1 Physical restraint status; Z68.29 Body mass index [BMI] 29.0-29.9, adult; Z79.899 Other long term (current) drug therapy; Z86.73 Personal history of transient ischemic attack (TIA), and cerebral infarction without residual deficits; Z90.89 Acquired absence of other organs; Z98.890 Other specified postprocedural states
CPT/HCPCS: 36415; 36416; 36430; 71045; 71275; 80048; 80053; 82553; 82805; 83880; 84484; 85025; 85610; 85730; 86850; 86900; 86901; 93005; 93010; 93458; 93798; 94002; 94640; 94760; 96374; 99152; 99153; C1713; C1751; C1769; C1776; G0378; J1100; J1265; J1642; J1644; J1815; J1885; J2001; J2150; J2250; J2405; J2440; J2704; J2720; J2930; J3010; J3370; J3475; J3480; J3490; J7050; J7512; J7620; J7626; P9045; Q0162; Q9967; S0017; S0028

== ENCOUNTER 2022-12-28 14:58 | Emergency (ER) | payer MEDICARE | END 2022-12-28 16:09 | disposition home or self-care (01) | LOC: ERS 14:58 | DX: Z00.00 Encounter for general adult medical examination without abnormal findings (principal); I10 Essential (primary) hypertension; Z79.82 Long term (current) use of aspirin; Z79.899 Other long term (current) drug therapy; Z95.1 Presence of aortocoronary bypass graft | CPT/HCPCS: 71045; 93005 ==

== ENCOUNTER 2022-12-30 19:24 | Emergency (ER) | payer MEDICARE ==
[2022-12-30 20:01] LABS: Hemoglobin 10.9 g/dL (14.0-18.0); Mean Corpuscular HGB CONC 33.1 g/dL (32.0-36.0); Mean Corpuscular Hemoglobin 29.8 pg (27.0-31.0); Mean Corpuscular Volume 89.9 fl (78.0-98.0); Mean Platelet Volume 8.5 fL (7.4-10.4); Platelet Count 477 10x3/uL (130-400); RBC Distribution Width 16.4 % (11.5-14.5); Red Blood Cell (RBC) Count 3.67 mill/uL (4.70-6.10); White Blood Cell (WBC) Count 22.1 10x3/uL (4.8-10.8)
[2022-12-30 20:16] LABS: INR-International Normal Ratio 1.1; PTT 30.6 sec (22.9-36.1); Prothrombin Time 14.1 sec (12.0-14.7)
[2022-12-30 20:17] LABS: D-Dimer Test 1.67 *mcg/mL (0.27-0.43)
[2022-12-30 20:18] LABS: CRP (Inflammatory) 8.16 mg/dL (= or < 0.5)
[2022-12-30 20:19] LABS: Eosinophils 4 % (0-10); Large Platelets SLIGHT; Lymphocytes 19 % (21-51); MDiff Complete? YES; Monocytes 3 % (0-10); Neutrophil 73 % (42-75); Ovalocytes SLIGHT = 2-5 cells (100X) (0-1/hpf); Platelet Morphology Comment Appears Increased; Polychromasia SLIGHT = 2-3 cells (100X) (0-2/hpf)
[2022-12-30 20:20] LABS: ALT (SGPT) 15 U/L (8-55); AST (SGOT) 18 U/L (5-34); Albumin 3.9 g/dL (3.4-4.8); Alkaline Phosphatase 68 U/L (40-110); Anion Gap 19 mmol/L (10-20); BUN (Urea Nitrogen) 26 mg/dL (8.4-25.7); Bilirubin, Total 0.4 mg/dL (0.2-1.2); Calc. Creatinine Clearance 0 mL/min (70-130); Calcium 9.2 mg/dL (7.8-10.44); Carbon Dioxide 22 mmol/L (23-31); Chloride 98 mmol/L (98-107); Estimated GFR 61; Globulin 3.1 g/dL (2.4-3.5); Glucose 138 mg/dL (83-110); Potassium 4.9 mmol/L (3.5-5.1); Sodium 134 mmol/L (136-145)
[2022-12-30 20:41] LABS: CKMB 1.3 ng/mL (0-6.6)
[2022-12-30 23:23] LABS: Bacteria/HPF None Seen HPF (None Seen); Bilirubin Negative (Negative); Blood, Urine Negative (Negative); Clarity Clear (Clear); Glucose, Urine (Dipstick) Normal (Negative); Ketone, Urine Negative (Negative); Leukocyte 25 Leu/uL (Negative); Nitrite Negative (Negative); Protein, Urine (Dipstick) 10 mg/dL (Neg-Trace); RBC/HPF 0-3 HPF (0-3); Squamous Epithelial 0-3 HPF (0-3); Urobilinogen Normal mg/dL (Less than 2); WBC/HPF 0-3 HPF (0-3); pH, Urine 5.5 (5.0-9.0)
== END 2022-12-30 23:40 | disposition home or self-care (01) ==
LOC: ERS 19:24
DX: R07.9 Chest pain, unspecified (principal); I11.0 Hypertensive heart disease with heart failure; I50.9 Heart failure, unspecified; Z79.899 Other long term (current) drug therapy
CPT/HCPCS: 71045; 71275; 80053; 81003; 81015; 82550; 82553; 83605; 84484; 85025; 85379; 85610; 85730; 86140; 86850; 86900; 86901; 87040; 87086; 93005

== ENCOUNTER 2023-05-09 12:25 | Day surgery (SDC) | payer MEDICARE ==
[2023-05-09] MEDS ORDERED: Acetaminophen 500 MG TAB ONE (14:04)
[2023-05-09] MEDS ORDERED: diphenhydrAMINE 25 MG CAP ONE (14:04)
[2023-05-09 16:45] VITALS: BP 156/65; TEMP 98
== END 2023-05-09 16:30 | disposition home or self-care (01) ==
LOC: ONC/OP 12:25
PROVIDERS: ATTEND Internal Medicine
DX: D64.9 Anemia, unspecified (principal); D69.59 Other secondary thrombocytopenia
CPT/HCPCS: 36430; 86850; 86900; 86901; 86920; P9016

== ENCOUNTER 2024-03-26 12:03 | Day surgery (SDC) | payer MEDICARE, SELFPAY ==
[2024-03-26] MEDS ORDERED: Acetaminophen 500 MG TAB ONE (13:47)
[2024-03-26] MEDS ORDERED: diphenhydrAMINE 25 MG CAP ONE (13:48)
[2024-03-26] MEDS: diphenhydrAMINE 25 MG CAP PO SCH (13:50)
[2024-03-26] MEDS: Acetaminophen 500 MG TAB PO SCH (13:50)
[2024-03-26 17:05] VITALS: BP 154/69; TEMP 97.5
== END 2024-03-26 16:56 | disposition home or self-care (01) ==
LOC: ONC/OP 12:03
PROVIDERS: ATTEND Nurse Practitioner Adult Health
DX: D64.9 Anemia, unspecified (principal); D69.6 Thrombocytopenia, unspecified
CPT/HCPCS: 36430; 86850; 86900; 86901; P9016

== ENCOUNTER 2025-04-01 08:10 | Day surgery (SDC) | payer OTHER ==
[2025-04-01] MEDS ORDERED: diphenhydrAMINE 25 MG CAP PO SCH (09:00)
[2025-04-01] MEDS: Acetaminophen 500 MG TAB PO SCH (09:56)
[2025-04-01] MEDS ORDERED: Acetaminophen 500 MG TAB ONE (09:56)
[2025-04-01 12:26] VITALS: BP 136/58; TEMP 97.5
== END 2025-04-01 12:55 | disposition home or self-care (01) ==
LOC: ONC/OP 08:10
PROVIDERS: ATTEND Internal Medicine
DX: D64.9 Anemia, unspecified (principal)
CPT/HCPCS: 36430; 86850; 86900; 86901; 86920; P9016